=== PATIENT | female | born 1965 | race Hispanic/Latino ===

== ENCOUNTER 2016-10-29 17:37 | Emergency (ER) | payer OTHER ==
[~2016-10-29 17:37] MED LIST: ADVAIR DISKUS1 UNIT INH; ALBUTEROL SULFAT3 M1 INH; ALBUTEROL0.09 MG/A1 INH; ATORVASTATIN CA20 MG PO; CINNAMON500 MG PO; CIPRO500 M1 PO; COLACE100 MG PO; COLCHICINE0.6 MG PO; DICLOFENAC POTA50 M1 PO; FLAGYL500 MG PO; FLEXERIL10 MG PO; FLONASE120 SPRAY/ NASB; IBU800 MG; KETOROLAC TROME10 M1 PO; LEVSIN0.125 M1 PO; MASON NATURAL325 MG PO; MOMETASONE0.05 MG/Ac NASB; NYSTATIN100000 U/G TOP; PREDNISONE 20MG20 MG PO; PROTONIX 20MG T20 MG PO; SERTRALINE HYD100 MG PO; SINGULAIR10 MG PO; TRAMADOL HCL50 M1 PO; TRAMADOL50 MG PO; ULTRAM50 M1 PO; VITAB121000 PO; ZOFRAN ODT4 M1 PO; ZOFRAN ODT4 M1 SL; ZOLOFT100 MG PO
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
[2016-10-29] MEDS ORDERED: CYCLOBENZAPRINE5 M2 PO (18:46)
[2016-10-29 18:53] VITALS: BP 136/80
== END 2016-10-29 18:55 ==
LOC: ERH 17:37
DX: S16.1XXA Strain of muscle, fascia and tendon at neck level, initial encounter (principal); V49.40XA Driver injured in collision with unspecified motor vehicles in traffic accident, initial encounter; Y92.410 Unspecified street and highway as the place of occurrence of the external cause